=== PATIENT | male | born 1930 | race Caucasian/White ===

== ENCOUNTER 2016-08-05 13:11 | Day surgery (SDC) | payer OTHER, MEDICARE ==
[2016-08-04 15:43] VITALS: BMI 25.7
[2016-08-05 14:03] LABS: INR 1.46 (0.82-1.09); PROTHROMBIN TIME (PATIENT) 16.2 SEC (9.98-11.88)
--- NOTE | 2016-08-05 15:22 | HP ---
Satellite [facility] - Chief Complaint History of Present Illness: 86 year old male with ESRD on Hemodialysis who wishes to change to peritoneal dialysis. History Source: Patient Limitations to Obtaining History: No Limitations - Past Medical History Allergies/Adverse Reactions: Allergies Allergy/AdvReac Type Severity Reaction Status Date / Time adhesive tape Allergy Rash Verified 08/05/16 14:07 latex Allergy "ITCHY" Verified 08/04/16 16:01 Sulfa (Sulfonamide Allergy Rash Verified 08/05/16 14:07 Antibiotics) Cardiovascular: Yes: AFIB, HTN - Current Medications Current Medications: Home Medications Medication Instructions Recorded Ascorbate Calcium [Vitamin C] 500 mg PO DAILY 08/04/16 Cholecalciferol (Vitamin D3) 1,000 unit PO DAILY 08/04/16 [Vitamin D3 -] Febuxostat [Uloric -] 40 mg PO DAILY 08/04/16 Finasteride 5 mg PO DAILY 08/04/16 Prednisone 10 mg PO DAILY 08/04/16 Tamsulosin HCl 0.4 mg PO DAILY 08/04/16 Warfarin Sodium [Coumadin] 7 mg PO DAILY 08/04/16 Satellite Physical Exam - Physical Examination Vital Signs: Vital Signs Period Temp Pulse Resp BP Sys/Mcpherson Pulse Ox Last 24 Hr 97.7 F 84 18 119/77 99 General Appearance: Alert & Oriented x3 ENT: No Discharge Lung: Clear to auscultation Heart: Other (Irregular pulse) Abdomen: Soft, Other (No scars, no hernias) Extremities: Other (Ecchymoses on both arms) Satellite Impression/Plan - Impression/Plan Impression: ESRD. Operative Procedure: Laparoscopic placement of peritoneal dialysis catheter Date to be Performed: 08/05/16
[2016-08-05] MEDS ORDERED: PROPOFOL 20 ML ONE (15:41)
[2016-08-05] MEDS ORDERED: ROCURONIUM BROMIDE 50 MG/5 ML VIAL ONE (15:41)
[2016-08-05] MEDS ORDERED: ceFAZolin SODIUM 1 GM VIAL IVPB ONE (15:45)
[2016-08-05] MEDS ORDERED: ceFAZolin SODIUM 1 GM VIAL ONE (15:52)
[2016-08-05] MEDS ORDERED: PHENYLEPHRINE HCL 10 MG/1 ML SINGLE DOSE VIAL ONE (16:00)
[2016-08-05] MEDS ORDERED: BUPIVACAINE HCL/PF 0.5% (5MG/ML) 10 ML VIAL IJ ONE (16:06)
[2016-08-05] MEDS ORDERED: DEXAMETHASONE SOD PHOSPHATE 4 MG/1 ML VIAL ONE (16:16)
[2016-08-05] MEDS ORDERED: OXYCODONE/APAP 5/325MG COMBO TABLET PO PRN (16:25)
[2016-08-05] MEDS ORDERED: ACETAMINOPHEN 325 MG TABLET (FP) PO PRN ×2 (16:25→16:59)
--- NOTE | 2016-08-05 16:25 | OP ---
Operative Note - Note: Operative Date: 08/05/16 Pre-Operative Diagnosis: ESRD Operation: Laparoscopic placement of peritoneal dialysis catheter Findings: No intrabdominal adhesions Implants: Right curl swan neck Tenckhoff catheter Post-Operative Diagnosis: Same as Pre-op Surgeon: Kendall Jin Valve Setter: Juliette Thomas Anesthesiologist/CYTOLOGY TEACHER: Rom Shaw Anesthesia: General
[2016-08-05] MEDS ORDERED: GLYCOPYRROLATE 0.2 MG/1 ML VIAL ONE (16:29)
[2016-08-05] MEDS ORDERED: NEOSTIGMINE METHYLSULFATE 0.5 MG/ML - 10 ML MDV ONE (16:29)
--- NOTE | 2016-08-05 16:47 | SURG ---
Surgery Curb Worker Note Curb Worker: Juliette Thomas PA-C Date of Service: 08/05/16 Diagnosis: ESRD Procedure: Laparoscopic placement of peritoneal dialysis catheter I was present for the entirety of the operative procedure. For further detail, please refer to operative report. Visit type - Case Type Case Type: Scheduled Admission - Emergency Emergency Visit: No - New patient This patient is new to me today: Yes Date on this admission: 08/05/16 - Critical Care Critical Care patient: No
[2016-08-05] MEDS ORDERED: ONDANSETRON 4 MG/2 ML VIAL IVPUSH PRN (16:59)
[2016-08-05] MEDS ORDERED: oxyCODONE HCL 5 MG TABLET PO PRN (16:59)
[2016-08-05 18:17] VITALS: TEMP 98
[2016-08-05 19:33] VITALS: BP 141/87; PULSE 89
--- NOTE | 2016-08-13 14:59 | OP ---
DATE OF OPERATION: 08/05/2016 SURGEON: Kendall Gleason MD AREA PLANT MANAGER: BRUCE Lawson PROCEDURE: Laparoscopic placement of peritoneal dialysis catheter. PREOPERATIVE: Renal failure. POSTOPERATIVE: Renal failure. ANESTHESIA: General. ANESTHESIOLOGIST: Rom Shaw DO OPERATIVE FINDINGS: Laparoscopy revealed no abnormal adhesions or omental tissue. OPERATIVE PROCEDURE: Following routine patient identification, general anesthesia was induced. The abdomen was prepped with ChloraPrep. Marcaine 0.5% was infiltrated in the skin of the midline above the umbilicus and a small incision made. Using a Visiport, the peritoneal cavity was entered with a 5-mm scope. Pneumoperitoneum was established with carbon dioxide to 15 mmHg. The angled laparoscope was inserted and abdominal exploration carried out as noted above. An incision was then made to the left of the umbilicus and an 8-mm blunt trocar advanced to the underside of the peritoneum and then distally toward the pelvis. A swan neck curled catheter was passed with a dietitian teaching through the port and the end of the catheter positioned at the top of the true pelvis. The port was removed. The end of the dialysis was attached to a curved metal tunneler which was then passed in the subcutaneous tissues to exit on the right abdominal wall. The Luer lock adapter was attached to the catheter and after evacuating pneumoperitoneum, a liter of saline was run into the peritoneal cavity without resistance. The saline was then withdrawn without difficulty and the catheter occluded. The wounds were then closed with interrupted suture of 3-0 Vicryl in the subcutaneous tissues and a running suture of 4-0 Biosyn on the skin. Dermabond glue was applied to the incisions and the catheter site was covered with a Biopatch and bio-occlusive dressing. The patient was then transported to the recovery room in stable condition. KENDALL GLEASON M.D. [id number]
== END 2016-08-05 19:25 | disposition home or self-care (01) ==
LOC: JASU-SURG 13:11
PROVIDERS: ATTEND Surgery
PROC: 0WHG43Z Insertion of Infusion Device into Peritoneal Cavity, Percutaneous Endoscopic Approach (ICD-10-PCS; principal; 2016-08-05 15:00)
DX: I12.0 Hypertensive chronic kidney disease with stage 5 chronic kidney disease or end stage renal disease (principal)
CPT/HCPCS: 36415; 84132; 85610; 94760